=== PATIENT | female | born 1960 | race Caucasian/White ===

== ENCOUNTER 2024-01-05 12:01 | Inpatient (IN) | payer OTHER, SELFPAY ==
[2024-01-05] VITALS (19 sets, daily range): BP systolic 94–142; BP diastolic 63–96; PULSE 70–105; RESP 12–19; TEMP 36.4–36.8; O2SAT 93–100; BMI 27.5
--- NOTE | ~2024-01-05 | XR_ITS ---
XR ankle RT min 3V Ordering provider: Zuri Elise MD History: . POST REDUCTION . Comparison: None. FINDINGS: BONES: Fracture of the medial and lateral malleoli is noted. Medial displacement of the distal tibia is noted. JOINT SPACES: Slightly narrowed. SOFT TISSUES: Normal. IMPRESSION: Bimalleolar fracture. Reviewed, dictated and finalized at location A. IMPRESSION: Bimalleolar fracture.
--- NOTE | ~2024-01-05 | CT_ITS ---
EXAMINATION: CT brain wo con DATE: 01/05/2024 13:51 INDICATION: Fall with head injury TECHNIQUE: Computed tomography (CT) of the head was performed without intravenous contrast. Sagittal and coronal reconstructions were performed. The mA was adjusted according to patient size. Iterative reconstruction technique was employed. The dose-length product was 605.33 mGy-cm. COMPARISON: None FINDINGS: No fracture. No acute intracranial hemorrhage, acute infarction or abnormal extra axial fluid collect ion. There is minimal scattered white matter hypoattenuation consistent with chronic small vessel isc hemic disease. Ventricles are normal and symmetric. No mass/mass effect. The orbits, paranasal sinus es and mastoid air cells are normal. IMPRESSION: 1. Normal aging brain. No fracture or acute intracranial process. Reviewed, dictated and finalized at location B.
--- NOTE | ~2024-01-05 | CT_ITS ---
EXAMINATION: CT cervical spine wo con DATE: 01/05/2024 13:51 INDICATION: Fall with head injury and neck pain TECHNIQUE: Computed tomography (CT) of the cervical spine was performed without intravenous contrast. Automated exposure control and iterative reconstruction technique were employed. The dose-length pro duct was 465.33 mGy-cm. COMPARISON: None FINDINGS: Mild cervicothoracic dextrocurvature. There is reversal of the normal cervical lordosis. No spondylol isthesis or facet subluxation. Chronic appearing mild anterior wedging at C5. No acute fracture. Nilsa re disc height loss at C6-C7, mild to moderate disc height loss at C4-C5 and C5-C6. Mild disc height loss at C2-C3 and C3-C4. Moderate osteoarthritis at the atlantoaxial articulation with prominent suba rticular cystic change at the left base of the dens. Cervical soft tissues are unremarkable. The foll owing disc levels are specifically discussed: C2-C3: There is no uncovertebral joint osteoarthritis. There is moderate left and severe right facet joint osteoarthritis. There is no neural foraminal stenosis. There is no central canal stenosis. C3-C4: There is bilateral uncovertebral joint osteoarthritis. There is mild right and severe left fa cet joint osteoarthritis. There is mild left neural foraminal stenosis. There is no central canal fred nosis. C4-C5: Small posterior disc osteophyte complex. There is mild left and moderate right uncovertebral j oint osteoarthritis. There is mild bilateral facet joint osteoarthritis. There is mild right neural f oraminal stenosis. There is mild central canal stenosis. C5-C6: Posterior disc osteophyte complex. There is moderate right and severe left uncovertebral joint osteoarthritis. There is mild bilateral facet joint osteoarthritis. There is mild bilateral neural f oraminal stenosis. There is mild central canal stenosis. C6-C7: Posterior disc osteophyte complex. There is severe bilateral uncovertebral joint osteoarthriti s. There is moderate right and moderate left facet joint osteoarthritis. There is moderate bilateral neural foraminal stenosis. There is mild central canal stenosis. C7-T1: There is mild bilateral uncovertebral joint osteoarthritis. There is moderate bilateral facet joint osteoarthritis. There is mild right neural foraminal stenosis. There is no central canal steno sis. IMPRESSION: 1. Moderate to severe cervical spondylosis. No acute osseous abnormality. Reviewed, dictated and finalized at location B.
--- NOTE | ~2024-01-05 | XR_ITS ---
XR chest 1V portable Ordering provider: Zuri Elise MD History: 63 years Female with . syncope . Comparison: None. FINDINGS: MEDIASTINUM: The cardiac silhouette is not enlarged. LUNGS: No infiltrates, effusions or pneumothorax. OTHER: No free air under the diaphragm. Bilateral shoulder arthroplasty. IMPRESSION: No acute cardiopulmonary pathology. Reviewed, dictated and finalized at location A.
--- NOTE | ~2024-01-05 | CT_ITS ---
EXAMINATION: CT ankle RT wo con DATE: 01/05/2024 16:38 INDICATION: Right ankle trimalleolar fracture. TECHNIQUE: Computed tomography (CT) of the right ankle was performed without intravenous contrast. Au tomated exposure control and iterative reconstruction technique were employed. The dose-length produc t was 389.51 mGy-cm. COMPARISON: Right ankle radiographs 01/05/2024 FINDINGS: Partially visualized is a lytic lesion in distal tibial metadiaphysis with chondroid matrix , likely an enchondroma. There is a comminuted fracture of distal fibula. The main distal fracture fr agment demonstrates 11 mm posterolateral displacement and shortening. There is an oblique fracture of medial malleolus. The distal fracture fragment demonstrates 8 mm anterolateral displacement. There i s a displaced fracture of posterior malleolus with 3 mm step-off at the articular surface. There is a comminuted fracture of lateral distal aspect of medial cuneiform. There are chip fractures of the pl marco base of first metatarsal. There are comminuted fractures of the bases of second and third metat arsals. There are chip fractures of the distal aspects of cuboid and lateral cuneiform. There is mild to moderate osteoarthritis of some of the midfoot joints. IMPRESSION: 1. Trimalleolar ankle fracture. 2. Fractures involving medial and lateral cuneiforms, cuboid, and the bases of the first-third metata rsals. Reviewed, dictated and finalized at location A. IMPRESSION: 1. Trimalleolar ankle fracture. 2. Fractures involving medial and lateral cuneiforms, cuboid, and the bases of the first-third metatarsals.
--- NOTE | ~2024-01-05 | XR_ITS ---
EXAMINATION: XR ankle RT min 3V DATE: 01/05/2024 12:46 INDICATION: Right ankle injury. Swelling. TECHNIQUE: 4 views of right ankle were obtained. COMPARISON: None. FINDINGS: There is sclerosis in the tibial metadiaphysis in a pattern of chondroid matrix, consistent with an enchondroma. There is a comminuted fracture of distal fibula with medial aspect of the fract ure line at the level of the tibial plafond. The main distal fracture fragment demonstrates one shaft width posterolateral displacement and 12 degrees posterolateral angulation. There is a oblique fract ure of medial malleolus. The distal fracture fragment demonstrates 12 mm posterolateral displacement. There is a displaced fracture of posterior malleolus. There is posterior and lateral subluxation of talus with respect to the tibial plafond. IMPRESSION: 1. Trimalleolar ankle fracture. Reviewed, dictated and finalized at location A.
--- NOTE | ~2024-01-05 | XR_ITS ---
XR surgery orthopedic Ordering provider: Roddy Maloney MD History: . ORIF RIGHT ANKLE . Comparison: None. FINDINGS/impression: Intraoperative fixation of the medial and lateral malleoli by plate and screws. Fluoroscopy time is 1 minute and 1 seconds. Radiation dose is 3.456 mGy. Reviewed, dictated and finalized at location A.
--- NOTE | ~2024-01-05 | XR_ITS ---
EXAMINATION: XR ankle RT min 3V DATE: 01/05/2024 17:10 INDICATION: Right ankle fracture status post reduction. TECHNIQUE: 3 views of right ankle were obtained. COMPARISON: Right ankle radiographs 3:35 PM FINDINGS: There is a lytic lesion in distal tibial metadiaphysis with chondroid matrix, consistent wi th an enchondroma. There is a comminuted fracture of distal fibula. The main distal fracture fragment demonstrates 9 mm posterior displacement and shortening. There is an oblique fracture of medial mall eolus. The distal fracture fragment demonstrates 8 mm lateral displacement. There is a fracture of po sterior malleolus. There is lateral subluxation of talus with respect to the tibial plafond. There is a comminuted intra-articular fracture of base of second metatarsal. Ankle soft tissue swelling is no osman. IMPRESSION: 1. Trimalleolar ankle fracture. 2. Comminuted fracture of base of second metatarsal. Reviewed, dictated and finalized at location A.
--- NOTE | 2024-01-05 12:15 | ECG_ITS ---
Test Date: 2024-01-05 12:30:55 Measurements Intervals [place] Rate: 94 P: 51 DE: 150 QRS: -29 QRSD: 102 T: 42 QT: 358 QTc: 449 Interpretive Statements SINUS RHYTHM POSSIBLE LEFT ATRIAL ENLARGEMENT INCOMPLETE RIGHT BUNDLE BRANCH BLOCK BORDERLINE R WAVE PROGRESSION, ANTERIOR LEADS BORDERLINE ECG No previous ECG available for comparison Electronically Signed On 01-05-2024 12:55:56 CDT by Jacob Stockton D.O.
--- NOTE | 2024-01-05 12:19 | PC.NURSE ---
Patient states she is unable to state her allergies at this time.
[2024-01-05 12:35] LABS: Basophils Absolute Auto 0.1 K/mm3 (0.0-0.1); Basophils Percent Auto 0.8 % (0.2-1.2); Eosinophils Absolute Auto 0.5 K/mm3 (0-0.3); Eosinophils Percent Auto 6.5 % (0-4.4); Hematocrit 40.1 % (37.0-47.0); Hemoglobin 13.2 g/dL (12.0-15.0); Immature Granulocyte Absolute 0.01 K/mm3 (0.00-0.031); Immature Granulocyte Percent A 0.1 % (0-0.5); Lymphocytes Absolute Auto 2.14 K/mm3 (0.9-3.2); Lymphocytes Percent Auto 25.9 % (18.3-44.2); Mean Corpuscular HGB Conc 32.9 g/dl (32-36); Mean Corpuscular Hemoglobin 32.4 pg (26-34); Mean Corpuscular Volume 98.3 fl (80-100); Mean Platelet Volume 9.4 fl (7.4-10.4); Monocytes Absolute Auto 0.8 K/mm3 (0.1-0.6); Monocytes Percent Auto 9.1 % (2.6-8.5); Neutrophils Absolute Auto 4.7 K/mm3 (1.3-6.7); Neutrophils Percent Auto 57.6 % (45.5-73.1); Platelet Count Result 257 k/mm3 (150-375); Red Blood Count 4.08 M/mm3 (4.2-5.4); Red Cell Distribution Width 13.2 % (11.5-14.5); White Blood Count 8.3 K/mm3 (4.5-10.0)
[2024-01-05 12:46] LABS: Alanine Aminotransferase 25 U/L (6-35); Alkaline Phosphatase 79 U/L (38-126); Anion Gap 10 mmol/L (4-12); Aspartate Amino Transferase 27 U/L (14-36); Bilirubin,Total 0.4 mg/dL (0.2-1.3); Blood Urea Nitrogen 20 mg/dL (7-17); Calcium 8.3 mg/dL (8.4-10.2); Carbon Dioxide 25 mmol/L (22-30); Chloride 104 mmol/L (98-107); Estimated CRCL calculation 41 ml/min; Estimated Glomerular Filt Rate 41; Glucose 113 mg/dL (65-110); Potassium 4.3 mmol/L (3.4-5.0); Sodium 139 mmol/L (137-145)
--- NOTE | 2024-01-05 13:36 | ED.FALL ---
HPI - Fall General Chief Complaint: Fall Stated Complaint: FALL, ANKLE DEFORMITY Time Seen by Provider: 01/05/24 12:19 History of Present Illness HPI Narrative: 63-year-old female presenting after a fall. States that she was in her kitchen when she started to feel lightheaded. States that she tried to lean against a counter but she continued to be lightheaded and then she fell. She landed on her right ankle and had immediate severe pain. She states that she thinks that she did softly hit her head but did not lose consciousness. States that she has chronic neck pain that actually feels better after her fall. Complains of persistent right ankle pain but no other complaints. Related Data Home Medications Medication Instructions Recorded Confirmed albuterol sulfate 90 mcg/actuation 2.8 inh inhalation QID 01/05/24 01/05/24 aerosol inhaler atenolol 50 mg tablet 50 mg PO DAILY 01/05/24 01/05/24 clonazepam 0.5 mg tablet 0.5 mg PO PRN PRN anxiety 01/05/24 01/05/24 cyclobenzaprine 10 mg tablet 10 mg PO TID 01/05/24 01/05/24 desvenlafaxine succinate 50 mg 50 mg PO DAILY 01/05/24 01/05/24 tablet,extended release 24 hr dicyclomine 10 mg capsule 10 mg PO QID 01/05/24 01/05/24 fluticasone propionate 50 1 spray intranasal DAILY 01/05/24 01/05/24 mcg/actuation nasal spray,suspension gabapentin 300 mg capsule 300 mg PO DAILY 01/05/24 01/05/24 gabapentin 300 mg capsule 600 mg PO HS 01/05/24 01/05/24 loratadine 10 mg tablet (Allergy 10 mg PO DAILY 01/05/24 01/05/24 Relief (loratadine)) rosuvastatin 10 mg tablet 10 mg PO DAILY 01/05/24 01/05/24 Allergies Allergy/AdvReac Type Severity Reaction Status Date / Time bee venom protein (honey bee) Allergy Anaphylaxis Verified 01/05/24 21:13 [bees] dexamethasone Allergy Anaphylaxis Verified 01/05/24 21:17 Review of Systems Review of Systems: All systems reviewed & are unremarkable except as noted in HPI and below PMFSH Past Medical History Medical History Anxiety and depression Asthma GERD (gastroesophageal reflux disease) Hypertension Multiple sclerosis PTSD (post-traumatic stress disorder) Surgical History Surgical History (Updated 01/05/24 @ 22:17 by Lorri Franco APRN) History of cholecystectomy History of repair of rotator cuff Right History of replacement of both shoulder joints Social History Social History Smoking status: Never smoker Alcohol intake: never Substance use: never Do You Feel Safe in your Home?: Yes Lack of Transportation: No Lack of Food: Never True Current Housing: I Have Housing Concerned About Future Housing: No Difficulty Paying Gas/Electric Bills: No Difficulty Paying for Meds: No Currently Unemployed: No Education: Decline to Answer Difficulty w/ Childcare or Family Care: No Spiritual care concerns: No Exam Narrative: GENERAL: No acute distress, pleasant and cooperative HEAD: Normocephalic, atraumatic. EYES: PERRLA and EOMI. ENT: Mucous membranes moist. NECK: Supple. C collar in place; +R sided paraspinal tenderness CHEST: Clear to auscultation. No respiratory distress. HEART: Regular rate and rhythm ABDOMEN: Soft, nontender, nondistended EXTREMITIES: R ankle has an YOANDY wrap in place, diffusely swollen and tender, DP pulse 2+, sensation intact SKIN: Warm, dry, no rash. NEURO: Alert and oriented x3. PSYCH: Normal mood and affect. Course Vital Signs Vital signs: Vital Signs Temperature 98.2 F 01/05/24 12:09 Pulse Rate 98 01/05/24 12:09 Respiratory Rate 16 01/05/24 12:09 Blood Pressure 111/88 01/05/24 12:09 Pulse Oximetry 94 01/05/24 12:09 Oxygen Delivery Room Air 01/05/24 12:09 Temperature 97.0 F L 01/07/24 13:42 Pulse Rate 104 H 01/07/24 13:42 Respiratory Rate 18 01/07/24 13:42 Blood Pressure 142/75 H 01/07/24 13:42 Pulse Oximetry 93
[2024-01-05] MEDS: SODIUM CHLORIDE 0.9% IV 1,000 ML 999 ML IV CONT (14:04)
[2024-01-05] MEDS: HYDROmorphone HCL INJ (*CRX) 1 MG/ML SYR 0.5 MG IV PUSH ×3 (14:04→21:32)
[2024-01-05 14:28] LABS: INR 0.9; Partial Thromboplastin Time 32.3 Seconds (22.3-36.8); Prothrombin Time 13.1 Seconds (11.1-14.7)
[2024-01-05] MEDS: ONDANSETRON INJ 4 MG/2 ML VIAL IV PUSH (15:21)
[2024-01-05] MEDS: ETOMIDATE 20 MG/10 ML AMPUL 14 MG IV PUSH (15:28)
--- NOTE | 2024-01-05 16:35 | PM.IMHP ---
H&P: HPI History of Present Illness Date/Time: 01/05/24 16:35 Chief Complaint: Fall Narrative: 63 y/o F presents here with fall and ankle pain with PMH of PTSD, multiple sclerosis, hypertension, anxiety/depression, and PTSD. The patient presents here from home via EMS for further evaluation of fall and ankle pain. She reports she was in her kitchen when she began feeling lightheaded. This prompted her to lean her forehead against the counter, lightheadedness did not resolve. Patient reports her vision went dark and she felt herself collapse to the floor (reports it felt like she was in slow motion). Patient did not lose consciousness. Patient then fell onto her right side and twisted her right ankle which went under her left thigh. She denies head strike and denies loss of consciousness. Post fall she reported right ankle pain that she describes as nondescript, nonradiating, constant, aggravated by movement, and alleviated by pain medication. She reports this morning that she started Prazosin which she reports that is was prescribed for her PTSD. Patient picked up the medication on 12/24. Since initiation she has had a few episodes of lightheadedness but it would resolve when she would put her head down. No accompanying chest pain, shortness a breath, dizziness, palpitations, diaphoresis, or nausea/vomiting. Initial VS at presentation: 98.2? F, HR 98, RR 16, 111/88, and 94% on RA. ED workup showed: No leukocytosis, no anemia, normal coags, creatinine 1.3 and GFR 41 (no previous available for comparison), glucose 113. Ankle XR showed a trimalleolar ankle fracture. Head CT showed a normal aging brain and no acute process. C-spine CT showed moderate to severe cervical spondylosis without acute osseous abnormality. CXR showed no acute cardiopulmonary pathology. Review of Systems Review of Systems: All systems reviewed & are unremarkable except as noted in HPI and below [facility] Past Medical History Medical History (Updated 01/05/24 @ 22:20 by Lorri Franco APRN) Anxiety and depression Asthma GERD (gastroesophageal reflux disease) Hypertension Multiple sclerosis PTSD (post-traumatic stress disorder) Surgical History Surgical History (Updated 01/05/24 @ 22:17 by Lorri Franco APRN) History of cholecystectomy History of repair of rotator cuff Right History of replacement of both shoulder joints Social History Social History Smoking status: Never smoker Alcohol intake: never Substance use: never Do You Feel Safe in your Home?: Yes Lack of Transportation: No Lack of Food: Never True Current Housing: I Have Housing Concerned About Future Housing: No Difficulty Paying Gas/Electric Bills: No Difficulty Paying for Meds: No Currently Unemployed: No Education: Decline to Answer Difficulty w/ Childcare or Family Care: No Spiritual care concerns: No Meds Home Medications and Allergies Home Medications Medication Instructions Recorded Confirmed Type albuterol sulfate 90 mcg/actuation 2.8 inh inhalation QID 01/05/24 01/05/24 History aerosol inhaler atenolol 50 mg tablet 50 mg PO DAILY 01/05/24 01/05/24 History clonazepam 0.5 mg tablet 0.5 mg PO PRN PRN anxiety 01/05/24 01/05/24 History cyclobenzaprine 10 mg tablet 10 mg PO TID 01/05/24 01/05/24 History desvenlafaxine succinate 50 mg 50 mg PO DAILY 01/05/24 01/05/24 History tablet,extended release 24 hr dicyclomine 10 mg capsule 10 mg PO QID 01/05/24 01/05/24 History fluticasone propionate 50 1 spray intranasal DAILY 01/05/24 01/05/24 History mcg/actuation nasal spray,suspension gabapentin 300 mg capsule 300 mg PO DAILY 01/05/24 01/05/24 History gabapentin 300 mg capsule 600 mg PO HS 01/05/24 01/05/24 History loratadine 10 mg tablet (Allergy 10 mg PO DAILY 01/05/24 01/05/24 History Relief (loratadine)) nitrofurantoin 100 mg PO DAILY 01/05/24 01/05/24 History mo
[2024-01-05 17:02] LABS: Troponin I < 0.012 ng/mL (0.000-0.034)
--- NOTE | 2024-01-05 17:24 | PM.CNOR ---
Assessment and Plan Assessment and plan (1) Trimalleolar fracture of ankle, closed: Qualifiers: Encounter type: initial encounter Laterality: right Qualified Code(s): S82.851A - Displaced trimalleolar fracture of right lower leg, initial encounter for closed fracture Code(s): S82.853A - Displaced trimalleolar fracture of unspecified lower leg, initial encounter for closed fracture Status: Acute Assessment and Plan: Patient is a 63-year-old presented to the emergency room of the ER earlier today after falling in her kitchen sustaining a tri malleolar fracture dislocation of the right ankle. She had a syncopal episode. It is not clear if she loss consciousness completely or not but she became very lightheaded and then found herself on the floor with a fracture dislocation of her right ankle. The emergency room physician felt this was likely due to her taking prazosin which she has recently started for PTSD as lightheadedness is a known side effect. She underwent closed reduction and short-leg splint immobilization by the emergency room physician earlier and the closed reduction corrected the posterior dislocation of the talus relative to the tibial plafond but did not fully correct the lateral translation of the talus relative to tibial plafond and lateral displacement of both medial malleolus and very comminuted lateral malleolus. CT scan obtained showed that the posterior malleolus fragment is a fairly thin sliver which would therefore be treated without internal fixation. I recommended trying another close reduction and application of a long leg splint. This was carried out with 2 assistants to hold her knee flexed and holding the great toe to provide and internal rotation adduction moment and I performed a closed reduction pushing the foot medially to improve the reduction and careful padding applied OCL and Maria Elena wrap performed which only partially improve the lateral subluxation of the medial malleolus talus and lateral malleolus. I feel that this fracture is particularly unstable. I have discussed with her and her treatment options. This will require open reduction internal fixation for her to have an ankle that will not developed rapid posttraumatic arthritis. She already has moderate swelling over the lateral malleolus and I have a feeling she will swell markedly and it would therefore be ideal to defer surgical fixation of the lateral malleolus until the swelling has peaked and then subsided for the most part. However, given the severe instability of the fracture I am worried about the status of the skin medially which will be tented a little bit by the medial tibial metaphysis. As such this instance I would recommend if the skin is in satisfactory condition tomorrow proceeding with open reduction internal fixation of the medial malleolus which should give reasonable approximation of the talus relative to the tibial plafond. If excessive instability at the ankle still persists we can consider trans calcaneal talar tibial fixation with Steinmann pin. I believe this will not be necessary toe. And then we would have her come back between 11 and 14 days after the swelling is improved to perform definitive open reduction internal fixation of her comminuted displaced lateral malleolus fracture. This was explained to patient and her in detail. Patient does not smoke. She has no history of DVT. I have discussed risks of blood clots with her we discussed risk of infection posttraumatic arthritis and injury to the peripheral nerves that run by the medial malleolus and the lateral malleolus that can cause a numb area on the foot if injured. She will be admitted overnight for observation. We will have her NPO after midnight and plan to proceed tomorrow in the early afternoon according to OR availability. We can ask physical therapy to work with her little bit on transfers tomorrow as well. I have reviewed the
[2024-01-05 17:28] LABS: Troponin I < 0.012 ng/mL (0.000-0.034)
--- NOTE | 2024-01-05 17:37 | PC.NURSE ---
Patient also states she is unable to recall home medications and pharmacy at this time as well.
--- NOTE | 2024-01-05 18:30 | ADMGEN ---
This patient, Edith Membreno, was admitted to [facility] Surg Room 303-01. Patient/family oriented to hospital policies and general routines including ID bracelet, bed and alarms, visiting hours, pain management, procedures, bathroom and other care routines, personal items, smoking policy, room service/diet, and visiting hours. Information on how to activate the Rapid Response Team has been discussed. Patient/Family are encouraged to report perceived risks to care and to ask questions if they do not understand what they are told or what they should do.
[2024-01-05] MEDS: ACETAMINOPHEN 325 MG TABLET 650 MG PO (20:58)
[2024-01-05] MEDS: DEXTROSE 5%/0.9% SOD CHL 1,000 ML 80 ML IV CONT (20:58)
[2024-01-06] VITALS (17 sets, daily range): BP systolic 109–150; BP diastolic 66–96; PULSE 82–102; RESP 12–20; TEMP 36.1–36.6; O2SAT 93–100
[2024-01-06] MEDS: ACETAMINOPHEN 325 MG TABLET 650 MG PO ×4 (00:54→21:34)
[2024-01-06] MEDS: HYDROmorphone HCL INJ (*CRX) 1 MG/ML SYR 0.5 MG IV PUSH ×3 (02:06→16:29)
[2024-01-06] MEDS: clonazePAM (*CRX) 0.5 MG TABLET PO (02:06)
[2024-01-06] MEDS: HYDROcodone/acetaminophen (*CRX) 5-325 MG TABLET 1 TAB PO ×2 (03:11→09:56)
[2024-01-06 07:24] LABS: Basophils Percent Auto 0.6 % (0.2-1.2); Eosinophils Absolute Auto 0.6 K/mm3 (0-0.3); Eosinophils Percent Auto 8.6 % (0-4.4); Hematocrit 36.3 % (37.0-47.0); Immature Granulocyte Absolute 0.03 K/mm3 (0.00-0.031); Immature Granulocyte Percent A 0.4 % (0-0.5); Lymphocytes Absolute Auto 1.76 K/mm3 (0.9-3.2); Lymphocytes Percent Auto 25.7 % (18.3-44.2); Mean Corpuscular HGB Conc 33.1 g/dl (32-36); Mean Corpuscular Hemoglobin 32.6 pg (26-34); Mean Corpuscular Volume 98.6 fl (80-100); Mean Platelet Volume 9.6 fl (7.4-10.4); Monocytes Absolute Auto 0.7 K/mm3 (0.1-0.6); Monocytes Percent Auto 10.2 % (2.6-8.5); Neutrophils Absolute Auto 3.7 K/mm3 (1.3-6.7); Neutrophils Percent Auto 54.5 % (45.5-73.1); Platelet Count Result 246 k/mm3 (150-375); Red Blood Count 3.68 M/mm3 (4.2-5.4); Red Cell Distribution Width 12.8 % (11.5-14.5); White Blood Count 6.9 K/mm3 (4.5-10.0)
[2024-01-06 07:42] LABS: Anion Gap 9 mmol/L (4-12); Blood Urea Nitrogen 14 mg/dL (7-17); Calcium 8.2 mg/dL (8.4-10.2); Carbon Dioxide 25 mmol/L (22-30); Chloride 104 mmol/L (98-107); Estimated CRCL calculation 48 ml/min; Estimated Glomerular Filt Rate 50; Glucose 103 mg/dL (65-110); Potassium 4.5 mmol/L (3.4-5.0); Sodium 138 mmol/L (137-145)
[2024-01-06] MEDS: ALBUTEROL SULFATE (*SP) AEROSOL 1 PUFF 2 PUFF INHALATION (08:15)
--- NOTE | 2024-01-06 08:54 | PHAR ---
The patient's home med of Desvenlafaxine ER 25mg has been verified.
[2024-01-06] MEDS: DEXTROSE 5%/0.9% SOD CHL 1,000 ML 80 ML IV CONT (09:44)
[2024-01-06] MEDS: LORATADINE 10 MG TABLET PO (09:45)
[2024-01-06] MEDS: NITROFURANTOIN MONOHYD MACROCR 100 MG CAP PO (09:45)
[2024-01-06] MEDS: ROSUVASTATIN 10 MG TABLET PO (09:45)
[2024-01-06] MEDS: DICYCLOMINE HCL 10 MG CAPSULE PO ×2 (09:46→21:32)
[2024-01-06] MEDS: FLUTICASONE PROPIONATE 0.05% NA SPR 16 GM BTL (*BKC) 1 SPRAY NASAL (09:46)
[2024-01-06] MEDS: atenoloL 50 MG TABLET PO (09:47)
--- NOTE | 2024-01-06 13:56 | PCRCNOTE ---
Window of time for administration has passed. See next scheduled administration.
[2024-01-06] MEDS: VANCOMYCIN 1,250 MG/NS 250 ML 1,250 MG/250 ML BAG 166.67 MG IVPB (14:20)
--- NOTE | 2024-01-06 17:33 | PM.IMPN ---
Progress Note: A&P Assessment and Plan (1) Trimalleolar fracture of ankle, closed: Qualifiers: Encounter type: initial encounter Laterality: right Qualified Code(s): S82.851A - Displaced trimalleolar fracture of right lower leg, initial encounter for closed fracture Code(s): S82.853A - Displaced trimalleolar fracture of unspecified lower leg, initial encounter for closed fracture Status: Acute Assessment and Plan: - Ankle XR (R): trimalleolar fracture - closed reduction in ED with short leg splint immobilization. Additional closed reduction with application of long-leg splint performed by orthopedist. - orthopedics consulted, [place] RIVERO: Additional closed reduction performed Surgical fixation 04/26 planned for tomorrow 01/05 with 2nd surgery 11-14 days later - CT of ankle: 1. Trimalleolar ankle fracture. 2. Fractures involving medial and lateral cuneiforms, cuboid, and the bases of the first-third metatarsals. - pain medication prn (2) Near syncope: Code(s): R55 - Syncope and collapse Status: Acute Assessment and Plan: - EKG, initial: Sinus rhythm, possible atrial enlargement, incomplete RBBB, borderline R-wave progression anterior leads. No previous available for comparison. - CXR: No acute cardiopulmonary process - Troponin: <0.012 x2 - suspect lightheadedness and collapse secondary to recent initiation of prazosin on 12/24. She reported lightheadedness intermittently since initiation. Patient has been instructed to discontinue medication. - telemetry monitoring (3) Hypertension: Qualifiers: Hypertension type: primary hypertension Qualified Code(s): I10 - Essential (primary) hypertension Code(s): I10 - Essential (primary) hypertension Status: Acute Assessment and Plan: - chronic, currently 121/64 - continue home medications: Atenolol 50 mg daily - monitor Plan Diet: NPO at midnight GI Prophylaxis: Not currently indicated DVT Prophylaxis: SCD to non affected limb Lines: Peripheral Code Status: Subjective Date/time seen: 01/06/24 17:33 Interval history: patient is undergoing open reduction of internal fixation of her malleolus. Review of Systems Review of Systems: All systems reviewed & are unremarkable except as noted in HPI and below Exam Narrative: good cap refill. ankle and foot very tender. heart and lungs fine. Const: General: comfortable and no acute distress Other: , female, nontoxic appearance HENMT: Face/Nose/Sinus: Normal nares present Mouth: Yes moist mucous membranes Eyes: General: appearance normal, both eyes and all related structures Sclera: sclerae normal Pupils: Equal, round and reactive pupils present EOM: EOMs intact bilaterally Resp: Effort & Inspection: normal respiratory effort Auscultation: clear to auscultation bilaterally Cardio: Rate: regular rate Rhythm: regular rhythm Other: S1-S2 present without murmur, rub, ectopy GI: Other: Abdomen soft, nondistended, nontender Skin: General skin exam: normal color and no rashes or lesions noted Wounds: no wounds Neuro: Cranial nerves: Yes Equal, round and reactive pupils present Speech: normal speech Motor exam (neuro): 5/5 motor strength present throughout Sensory Exam: normal sensation Other: A&O x4 Extrem: Other: Soft brace to right lower extremity. Good cap refill in bilateral legs. Tenderness to toes and ankle with light palpation. Psych: Mental Status: mental status grossly normal Affect: normal affect Other: Good insight and judgment, pleasant Objective Data Vital Signs Vital Signs: Vital Signs - 24 hr 01/05/24 18:13 01/05/24 20:14 01/05/24 20:00 Temperature 98.1 F 97.6 F Pulse Rate 70 94 100 Respiratory Rate 14 18 Blood Pressure 116/78 121/64 Pulse Oximetry 98 94 Oxygen Delivery 01/06/24 00:00 01/06/24 05:56 01/06/24 08:15 Temper
--- NOTE | 2024-01-06 17:46 | WPDANESEPPF ---
Anes - Initial Pre Proc Eval Procedure: Operation Date: 01/06/24 15:30 Proposed Procedures p Open Reduction Internal Fixation Right Ankle - Roddy Maloney MD Date/Time: 01/06/24 17:46 Surgeon: Paulino Lara MD Pre Op Diagnosis: R Trimalleolar Fx/Syncope Patient Data Age: 63 Gender: F Height: 1.68 m Weight: 77.27 kg Last Vital Signs Temp 36.6 C 01/06/24 15:05 Pulse 102 H 01/06/24 15:05 Resp 20 01/06/24 08:15 BP 148/77 H 01/06/24 15:05 Pulse Ox 95 01/06/24 15:05 O2 Del Method Room Air 01/06/24 12:27 O2 Flow Rate 2 01/05/24 16:05 Allergies Allergy/AdvReac Type Severity Reaction Status Date / Time bee venom protein (honey bee) Allergy Anaphylaxis Verified 01/05/24 21:13 [bees] dexamethasone Allergy Anaphylaxis Verified 01/05/24 21:17 Home Medications Medication Instructions Recorded Confirmed Type albuterol sulfate 90 mcg/actuation 2.8 inh inhalation QID 01/05/24 01/05/24 History aerosol inhaler atenolol 50 mg tablet 50 mg PO DAILY 01/05/24 01/05/24 History clonazepam 0.5 mg tablet 0.5 mg PO PRN PRN anxiety 01/05/24 01/05/24 History cyclobenzaprine 10 mg tablet 10 mg PO TID 01/05/24 01/05/24 History desvenlafaxine succinate 50 mg 50 mg PO DAILY 01/05/24 01/05/24 History tablet,extended release 24 hr dicyclomine 10 mg capsule 10 mg PO QID 01/05/24 01/05/24 History fluticasone propionate 50 1 spray intranasal DAILY 01/05/24 01/05/24 History mcg/actuation nasal spray,suspension gabapentin 300 mg capsule 300 mg PO DAILY 01/05/24 01/05/24 History gabapentin 300 mg capsule 600 mg PO HS 01/05/24 01/05/24 History loratadine 10 mg tablet (Allergy 10 mg PO DAILY 01/05/24 01/05/24 History Relief (loratadine)) nitrofurantoin 100 mg PO DAILY 01/05/24 01/05/24 History monohydrate/macrocrystals 100 mg capsule rosuvastatin 10 mg tablet 10 mg PO DAILY 01/05/24 01/05/24 History Laboratory Tests 01/06/24 06:36 WBC 6.9 K/mm3 (4.5-10.0) RBC 3.68 L M/mm3 (4.2-5.4) Hgb 12.0 g/dL (12.0-15.0) Hct 36.3 L % (37.0-47.0) MCV 98.6 fl (80-100) MCH 32.6 pg (26-34) MCHC 33.1 g/dl (32-36) RDW 12.8 % (11.5-14.5) Plt Count 246 k/mm3 (150-375) MPV 9.6 fl (7.4-10.4) Immature Gran % (Auto) 0.4 % (0-0.5) Neut % (Auto) 54.5 % (45.5-73.1) Lymph % (Auto) 25.7 % (18.3-44.2) Swain % (Auto) 10.2 H % (2.6-8.5) Eos % (Auto) 8.6 H % (0-4.4) Baso % (Auto) 0.6 % (0.2-1.2) Lymph # (Auto) 1.76 K/mm3 (0.9-3.2) Swain # (Auto) 0.7 H K/mm3 (0.1-0.6) Eos # (Auto) 0.6 H K/mm3 (0-0.3) Baso # (Auto) 0.0 K/mm3 (0.0-0.1) Abs Immat Gran (auto) 0.03 K/mm3 (0.00-0.031) Absolute Neuts (auto) 3.7 K/mm3 (1.3-6.7) Absolute Nucleated RBC 0.000 K/mm3 (0.0-0.012) Nucleated RBC % 0.0 % (0.0-0.2) Sodium 138 mmol/L (137-145) Potassium 4.5 mmol/L (3.4-5.0) Chloride 104 mmol/L (98-107) Carbon Dioxide 25 mmol/L (22-30) Anion Gap 9 mmol/L (4-12) BUN 14 D mg/dL (7-17) Creatinine 1.10 H mg/dL (0.7-1.0) Estim Creat Clear Calc 48 ml/min Estimated GFR 50 L (59 - ) Glucose 103 mg/dL (65-110) Calcium 8.2 L mg/dL (8.4-10.2) Patient hx anesthesia problems: none Family hx anesthesia problems: none Results Review: All pre-operative results and documents have been reviewed as part of the pre-operative evaluation. [facility] Past Medical History Medical History Anxiety and depression Asthma GERD (gastroesophageal reflux disease) Hypertension Multiple sclerosis PTSD (post-traumatic stress disorder) Surgical History Surgical History (Updated 01/05/24 @ 22:17 by Lorri Franco APRN) History of cholecystectomy History of repair of rotator cuff Right History of replacement of both shoulder joints Social History Social History (Reviewed
[2024-01-06] MEDS: LACTATED RINGERS 1,000 ML 30 ML IV CONT ×2 (17:57→20:04)
--- NOTE | 2024-01-06 17:57 | WPDHPUPDATE1 ---
History and Physical Update Update Date/Time: 01/06/24 17:57 History and Physical has been reviewed, including an updated exam of the patient. Top of forefoot seems swollen.Sensation intact. Risks, benefits, and alternatives have been discussed and questions answered. Patient agrees to proceed with procedure. Plan orif Med Mal, possibly Lat mal if not too swollen, and possible trans tibio talar calcaneal sandip pin.
[2024-01-06] MEDS: ceFAZolin 2 GM/D5W 50 ML 2 GM/50 ML BAG IVPB (18:15)
[2024-01-06] MEDS: ceFAZolin SODIUM 1 GM VIAL (18:31)
--- NOTE | 2024-01-06 19:41 | W.PM.PROC2 ---
Procedure Note - Detailed Date of Procedure 01/06/24 Pre-op Diagnosis R Trimalleolar Fx/Syncope Post-op Diagnosis Same Procedure Performed Open reduction internal fixation right trimalleolar ankle fracture without fixation of posterior lip Surgeon Roddy Maloney MD [employer] Shalonda Anesthesia General Description of Procedure Patient brought to the operating room and general anesthesia was administered. Her splint was removed and the skin carefully scrubbed with the Reagan prep cloth. She received weight based vancomycin and 2 g of Ancef preoperatively. We carefully inspected the ankle. It looked about the same as it looked last night and with her asleep I could palpate it very easily and the skin was supple without edema around the ankle. She did have edema on the dorsum of the foot. I felt confident that we would be able to close the lateral incision without tension and therefore we proceeded to address the lateral malleolus 1st. A 5 in longitudinal incision was made centered over the fracture site after exsanguination of the limb and elevation of tourniquet to 300 mmHg. Dissection was carried down to the subcutaneous fat bluntly. I did not visualize any branch of the superficial peroneal nerve. Exposure was actually very easy as the subcutaneous fat layer was already avulse off the lateral surface of the distal fibular shaft and lateral malleolus. There was a fair amount of hematoma that was evacuated which reduce the size of the swelling substantially. There was a long posterior cortical spike but the fracture was very long oblique so that the distal 1 in of the shaft fracture could be reduced to the lateral malleolus fracture without segmental comminution this was held with 2 bone clamps and a 2.7 mm interfragmentary screw placed from anterior to distal posterior through a gliding hole which obtained good purchase. I think she does have osteoporosis. Therefore we left 1 clamp on additionally to maintain the reduction and this automatically nearly reduce the posterior spike proximally so we left it undisturbed and did not strip any soft tissues from a. We contoured a 6 hole 1/3 tubular locking plate from the [employer] set and once optimally contoured we used an olive wire to pin it to the lateral malleolus distally and then placed a cortical screw in the 3rd hole from proximal compressing the plate to the bone. Fortunately this missed the posterior spike stain just anterior to it. We then placed 2 locking screws in the distal fragment and then 1 more cortical screw in the 4th hole from proximal which also miss the posterior fragment a locking screw in the 2nd hole and another cortical screw in the proximal hole. This achieved anatomic reduction and we confirmed appropriate screw length fluoroscopically. The medial malleolus was approached through a 2 in longitudinal incision through the skin and then blunt dissection the fracture again exposure was easy because the subcutaneous fat was avulsed from the underlying fascia and there is a fair amount of hematoma in liquid state that was evacuated. There was periosteum infolded in the fracture which were removed and debrided a little bit of organized hematoma and there was no comminution. It was a large medial malleolus fragment An anatomic reduction was achieved held with a towel clip style reduction clamp and 2 parallel guidewires inserted perpendicular the fracture which was directed somewhat distal anterior to proximal posterior and over these guidewires to longer partially threaded cannulated screws 4.0 were placed each obtaining good purchase and guidewires removed anatomic reduction was confirmed fluoroscopically. We put the tourniquet down while we were drilling for the medial malleolar screws and hemostasis was complete at time wound closure. We thoroughly irrigated with Ancef solution skin closed with 3-0 subcutaneous Vicryl and glue and she was placed in a well-padded posterior OCL splint transferred
--- NOTE | 2024-01-06 20:12 | PM.OP ---
Procedure Note - Brief Procedure Note - Brief Date of procedure: 01/06/24 R Trimalleolar Fx/Syncope Procedure performed: ORIF of right medial and lateral malleolus. Surgeon: SONY Morel Findings: 63-year-old female who underwent ORIF of a right trimalleolar ankle fracture on 01/05. I was involved procedure including positioning patient on the OR table in 1st assisting through the time of surgery. Total time spent was 2 hours Urine output (mL): 700
--- NOTE | 2024-01-06 20:17 | PM.PNORT ---
Progress Note: A&P Assessment and Plan (1) Trimalleolar fracture of ankle, closed: Qualifiers: Encounter type: initial encounter Laterality: right Qualified Code(s): S82.851A - Displaced trimalleolar fracture of right lower leg, initial encounter for closed fracture Code(s): S82.853A - Displaced trimalleolar fracture of unspecified lower leg, initial encounter for closed fracture Status: Acute Assessment and Plan: In doing the postoperative orders it was noted that the patient had been started on Macrobid this morning. I reviewed the hospitalist note. There is no mention of suspicion for urinary tract infection. That is the only indication for Macrobid. There has been no urinalysis performed during this hospitalization so I believe that the Macrobid was started in error and we will discontinue it. Subjective Subjective Date/Time Seen: 01/06/24 20:17 Objective Data Vital Signs Vital Signs: Vital Signs - 24 hr 01/06/24 00:00 01/06/24 05:56 01/06/24 08:15 Temperature 36.2 C L Pulse Rate 101 H 100 Respiratory Rate 20 Blood Pressure 136/77 Pulse Oximetry 93 95 Oxygen Delivery Room Air Oxygen Flow Rate 01/06/24 08:15 01/06/24 12:27 01/06/24 08:00 Temperature Pulse Rate 100 100 Respiratory Rate 20 Blood Pressure Pulse Oximetry Oxygen Delivery Room Air Oxygen Flow Rate 01/06/24 08:00 01/06/24 12:00 01/06/24 15:05 Temperature 36.6 C Pulse Rate 100 88 102 H Respiratory Rate 20 Blood Pressure 148/77 H Pulse Oximetry 95 95 Oxygen Delivery Room Air Oxygen Flow Rate 01/06/24 20:04 Temperature 36.3 C L Pulse Rate 82 Respiratory Rate 18 Blood Pressure 109/67 Pulse Oximetry 100 Oxygen Delivery Simple Face Mask Oxygen Flow Rate 6 Intake/Output Intake/Output: Intake & Output 01/03/24 01/04/24 01/05/24 01/06/24 23:59 23:59 23:59 23:59 Intake Total 1000 1300 Output Total 2550 Balance 1000 -1250 Meds/Results Medications: Active Medications Generic Name Dose Route Start Last Admin Trade Name Freq PRN Reason Stop Dose Admin Acetaminophen 650 mg 01/05/24 18:00 01/06/24 17:44 Acetaminophen 325 Mg Tablet PO Not Given Q6HR DEREK Hydrocodone Bitart/Acetaminophen 1 tab 01/05/24 21:17 01/06/24 09:56 Hydrocodone/Acetaminophen (*Crx) 5-325 Mg Tablet PO 1 tab Q4H PRN Administration Pain Rated 4-6 Albuterol 2 puff 01/06/24 08:00 01/06/24 19:14 Albuterol Sulfate (*Sp) Aerosol 1 Puff INHALATION Not Given QIDRT DEREK Atenolol 50 mg 01/06/24 09:00 01/06/24 09:47 Atenolol 50 Mg Tablet PO 50 mg DAILY DEREK Administration Clonazepam 0.5 mg 01/05/24 21:58 01/06/24 02:06 Clonazepam (*Crx) 0.5 Mg Tablet PO 0.5 mg PRN PRN Administration anxiety Desvenlafaxine Succinate 50 mg 01/06/24 09:00 01/06/24 09:46 Desvenlafaxine Succinate 50 Mg Tab.Er.24h PO 02/05/24 08:59 Not Given DAILY [facility] Dicyclomine HCl 10 mg 01/06/24 09:00 01/06/24 17:44 Dicyclomine Hcl 10 Mg Capsule PO Not Given QID [facility] Fentanyl Citrate 25 mcg 01/06/24 17:45 Fentanyl Citrate Inj (*Crx) 100 Mcg/2 Ml Vial IV PUSH Q2M PRN Pain Fluticasone Propionate 1 spray 01/06/24 09:00 01/06/24 09:46 Fluticasone Propionate 0.05% Na Spr 16 Gm Btl (*Bkc) NASAL 1 spray DAILY DEREK Administration Hydromorphone HCl 0.5 mg 01/05/24 21:18 01/06/24 16:29 Hydromorphone Hcl Inj (*Crx) 1 Mg/Ml Syr IV PUSH 0.5 mg Q3H PRN Administration Pain Rated 7-10 Dextrose/Sodium Chloride 1,000 mls @ 80 mls/hr 01/05/24 17:50 01/06/24 09:44 Dextrose 5% Sodium Chloride 0.9% IV CONT 80 mls/hr .[id number] DEREK Administration Lactated Ringer's 1,000 mls @ 30 mls/hr 01/06/24 17:45 01/06/24 17:57 Lr - Lactated Ringers Iv IV CONT 30 mls/hr .Q24H DEREK Administration Lactated Ringer's 1,000 mls @ 30 mls/hr 01/06/24 17:45 Lr - Lactated Ringers Iv IV CONT .Q24H SC
[2024-01-06] MEDS: fentaNYL CITRATE INJ (*CRX) 100 MCG/2 ML VIAL 25 MCG IV PUSH ×4 (20:35→20:51)
[2024-01-06] MEDS: FAMOTIDINE 20 MG TABLET PO (21:32)
[2024-01-06] MEDS: oxyCODONE HCL (*CRX) 5 MG TAB IR PO (21:33)
[2024-01-06] MEDS: SODIUM CHLORIDE 0.9% IV 1,000 ML 125 ML IV CONT (21:34)
[2024-01-07] VITALS (8 sets, daily range): BP systolic 142–149; BP diastolic 75–90; PULSE 88–109; RESP 16–18; TEMP 36.1–36.6; O2SAT 93–97
[2024-01-07] MEDS: ceFAZolin 2 GM/D5W 50 ML 2 GM/50 ML BAG IVPB ×3 (00:13→13:07)
[2024-01-07] MEDS: oxyCODONE HCL (*CRX) 5 MG TAB IR PO ×4 (01:19→13:58)
[2024-01-07] MEDS: ACETAMINOPHEN 325 MG TABLET 650 MG PO ×4 (01:19→13:58)
[2024-01-07] MEDS: VANCOMYCIN 1,000 MG/NS 250 ML 1,000 MG/250 ML BAG 250 MG IVPB ×2 (01:21→12:04)
[2024-01-07 02:45] LABS: Vitamin D 25 Hydroxy 34.3 ng/mL
[2024-01-07] MEDS: PHENAZOPYRIDINE HCL 100 MG TABLET 200 MG PO ×2 (05:12→12:04)
[2024-01-07 07:07] LABS: Hematocrit 35.1 % (37.0-47.0); Hemoglobin 11.8 g/dL (12.0-15.0); Mean Corpuscular HGB Conc 33.6 g/dl (32-36); Mean Corpuscular Hemoglobin 32.9 pg (26-34); Mean Corpuscular Volume 97.8 fl (80-100); Mean Platelet Volume 9.6 fl (7.4-10.4); Platelet Count Result 236 k/mm3 (150-375); Red Blood Count 3.59 M/mm3 (4.2-5.4); White Blood Count 7.7 K/mm3 (4.5-10.0)
[2024-01-07 07:33] LABS: Potassium 4.6 mmol/L (3.4-5.0)
[2024-01-07 07:34] LABS: Alanine Aminotransferase 20 U/L (6-35); Albumin Level 3.7 g/dL (3.5-5.1); Alkaline Phosphatase 58 U/L (38-126); Anion Gap 8 mmol/L (4-12); Aspartate Amino Transferase 25 U/L (14-36); Bilirubin,Total 0.4 mg/dL (0.2-1.3); Blood Urea Nitrogen 11 mg/dL (7-17); Calcium 8.3 mg/dL (8.4-10.2); Carbon Dioxide 25 mmol/L (22-30); Chloride 104 mmol/L (98-107); Estimated CRCL calculation 58 ml/min; Estimated Glomerular Filt Rate > 60; Glucose 156 mg/dL (65-110); Sodium 137 mmol/L (137-145)
[2024-01-07] MEDS: ALBUTEROL SULFATE (*SP) AEROSOL 1 PUFF 2 PUFF INHALATION (08:49)
[2024-01-07] MEDS: DESVENLAFAXINE SUCCINATE 50 MG TAB.ER.24H PO (09:00)
[2024-01-07] MEDS: SENNA/DOCUSATE SODIUM TABLET 2 TAB PO (09:00)
[2024-01-07] MEDS: FAMOTIDINE 20 MG TABLET PO (09:00)
[2024-01-07] MEDS: ROSUVASTATIN 10 MG TABLET PO (09:01)
[2024-01-07] MEDS: DICYCLOMINE HCL 10 MG CAPSULE PO ×2 (09:01→13:57)
[2024-01-07] MEDS: ASPIRIN 81 MG ENTERIC TABLET PO (09:01)
[2024-01-07] MEDS: polyethylene glycoL 3350 17 GM POWD.PACK PO (09:02)
--- NOTE | 2024-01-07 11:59 | PCPTNOTE ---
Attempted PT evaluation, pt adamantly refused to participate stating she just wanted to leave the hospital as soon as possible. RN aware.
--- NOTE | 2024-01-07 12:32 | WPDANESPN ---
Anes - Prog Note Post-Op Date/Time: 01/07/24 12:32 Cardiovascular status: normal Respiratory status: normal Airway patency: baseline Mental status: baseline Post-Op hydration status: normal Vital Signs: Last Vital Signs Temp 97.7 F 01/07/24 10:00 Pulse 109 H 01/07/24 10:00 Resp 18 01/07/24 10:00 BP 146/78 H 01/07/24 10:00 Pulse Ox 96 01/07/24 10:00 O2 Del Method Room Air 01/07/24 09:26 O2 Flow Rate 2 01/07/24 08:50 Pain Score (VAS): 0 I/O: Intake & Output 01/06/24 01/07/24 01/07/24 23:59 07:59 15:59 Intake Total 600 800 170 Output Total 1400 600 650 Balance -800 200 -480 Laboratory Tests 01/07/24 05:57 01/07/24 05:57 01/07/24 01/07/24 05:57 06:36 WBC 7.7 RBC 3.59 L Hgb 11.8 L Hct 35.1 L MCV 97.8 MCH 32.9 MCHC 33.6 RDW 13.0 Plt Count 236 MPV 9.6 Sodium 137 Potassium 4.6 Chloride 104 Carbon Dioxide 25 Anion Gap 8 BUN 11 Creatinine 0.90 Estim Creat Clear Calc 58 Estimated GFR > 60 Glucose 156 H Calcium 8.3 L Total Bilirubin 0.4 AST 25 ALT 20 Alkaline Phosphatase 58 Total Protein 7.0 Albumin 3.7 Vitamin D 25-Hydroxy 34.3 Post-procedural complaints: none Patient Feedback: Patient satisfied with anesthetic care. denies complaints. pt seemed to answer questions appropriately but did not put down or look away from her phone during exchange.no distress noted.
--- NOTE | 2024-01-07 14:15 | PM.DS ---
DS: Admitting Diagnosis Discharge Date 01/07/2024 Admitting Diagnosis Fall DS: Discharge Diagnosis Discharge Diagnosis (1) Trimalleolar fracture of ankle, closed: Qualifiers: Encounter type: initial encounter Laterality: right Qualified Code(s): S82.851A - Displaced trimalleolar fracture of right lower leg, initial encounter for closed fracture Code(s): S82.853A - Displaced trimalleolar fracture of unspecified lower leg, initial encounter for closed fracture Status: Acute Assessment and Plan: - Ankle XR (R): trimalleolar fracture - closed reduction in ED with short leg splint immobilization. Additional closed reduction with application of long-leg splint performed by orthopedist. - orthopedics consulted, [place] RIVERO: Additional closed reduction performed Surgical fixation 04/26 planned for tomorrow 01/05 with 2nd surgery 11-14 days later - CT of ankle: 1. Trimalleolar ankle fracture. 2. Fractures involving medial and lateral cuneiforms, cuboid, and the bases of the first-third metatarsals. - pain medication prn (2) Near syncope: Code(s): R55 - Syncope and collapse Status: Acute Assessment and Plan: - EKG, initial: Sinus rhythm, possible atrial enlargement, incomplete RBBB, borderline R-wave progression anterior leads. No previous available for comparison. - CXR: No acute cardiopulmonary process - Troponin: <0.012 x2 - suspect lightheadedness and collapse secondary to recent initiation of prazosin on 12/24. She reported lightheadedness intermittently since initiation. Patient has been instructed to discontinue medication. - telemetry monitoring (3) Hypertension: Qualifiers: Hypertension type: primary hypertension Qualified Code(s): I10 - Essential (primary) hypertension Code(s): I10 - Essential (primary) hypertension Status: Acute Assessment and Plan: - chronic, currently 121/64 - continue home medications: Atenolol 50 mg daily - monitor DS: Summary Hospital Course Hospital Course: 63-year-old female presenting after a fall. States that she was in her kitchen when she started to feel lightheaded. She reports this morning that she started Prazosin which she reports that is was prescribed for her PTSD. Patient picked up the medication on 12/24. Since initiation she has had a few episodes of lightheadedness but it would resolve when she would put her head down. States that she tried to lean against a counter but she continued to be lightheaded and then she fell. She landed on her right ankle and had immediate severe pain. She states that she thinks that she did softly hit her head but did not lose consciousness. States that she has chronic neck pain that actually feels better after her fall. Complains of persistent right ankle pain but no other complaints.No leukocytosis, no anemia, normal coags, creatinine 1.3 and GFR 41 (no previous available for comparison), glucose 113. Ankle XR showed a trimalleolar ankle fracture. Head CT showed a normal aging brain and no acute process. C-spine CT showed moderate to severe cervical spondylosis without acute osseous abnormality. CXR showed no acute cardiopulmonary pathology.She underwent closed reduction and short-leg splint immobilization by the emergency room physician earlier and the closed reduction corrected the posterior dislocation of the talus relative to the tibial plafond but did not fully correct the lateral translation of the talus relative to tibial plafond and lateral displacement of both medial malleolus and very comminuted lateral malleolus. CT scan obtained showed that the posterior malleolus fragment is a fairly thin sliver which would therefore be treated without internal fixation. Ortho tried another close reduction and application of a long leg splint. This was carried out with 2 assistants to hold her knee flexed and holding the great toe to provide and internal rotation adduction mom
--- NOTE | 2024-01-07 14:55 | PC.NURSE ---
On 01/07/24, the [employer],Silke Mazariegos, provided care and completed [employer] documentation on this patient. I have reviewed the [employer]'s documentation and agree with the findings.
== END 2024-01-07 14:55 | disposition home or self-care (01) | DRG 313 ==
LOC: ANHED 15:57 → ANH3MEDSUR 18:13
PROVIDERS: Emergency Medicine; Orthopaedic Surgery; Physician Assistant Surgical; Admitting Provider General Practice; Emergency Provider Emergency Medicine; Visit Provider General Practice
PROC: 0QSJ04Z Reposition Right Fibula with Internal Fixation Device, Open Approach (ICD-10-PCS; principal; 2024-01-06 15:30)
DX: S82.851A Displaced trimalleolar fracture of right lower leg, initial encounter for closed fracture (principal); I10 Essential (primary) hypertension; J45.909 Unspecified asthma, uncomplicated; K21.9 Gastro-esophageal reflux disease without esophagitis; M47.812 Spondylosis without myelopathy or radiculopathy, cervical region; G35 Multiple sclerosis; R55 Syncope and collapse; T44.6X5A Adverse effect of alpha-adrenoreceptor antagonists, initial encounter; F43.10 Post-traumatic stress disorder, unspecified; F32.A Depression, unspecified; F41.9 Anxiety disorder, unspecified; W19.XXXA Unspecified fall, initial encounter; Z96.611 Presence of right artificial shoulder joint; Z96.612 Presence of left artificial shoulder joint
CPT/HCPCS: 27788; 36415; 70450; 71045; 72125; 73610; 73700; 80048; 80053; 82306; 84484; 85025; 85027; 85610; 85730; 93005; 94640; 96374; 96375; 96376; 97161; 97165; 97530; 99199; 99285; A9270; C1713; C1769; G0378; G0379; J0690; J1100; J1170; J2405; J2704; J3010; J3370; J7030; J7042; J7120